=== PATIENT | male | born 1960 | race African-American/Black ===

== ENCOUNTER 2019-12-23 20:57 | Emergency (ER) | payer OTHER ==
[~2019-12-23] VITALS: Ht 142.2 cm; Wt 54.4 kg
[2019-12-23] MEDS ORDERED: LIPITOR20 MG PO (21:05)
[2019-12-23] MEDS ORDERED: ASA81BEC PO (21:05)
[2019-12-23] MEDS ORDERED: LEVETIRACETAM500 M1 PO (21:05)
[2019-12-23] MEDS ORDERED: CARVEDILOL12.5 MG PO (21:06)
[2019-12-23] MEDS ORDERED: GABAPENTIN600 M1 PO (21:06)
[2019-12-23] MEDS ORDERED: LISINOPRIL2.5 MG PO (21:06)
[2019-12-23] MEDS ORDERED: BACLOFEN 10MG T10 MG PO (21:07)
[2019-12-23] MEDS ORDERED: NORVASC 2.5 MG2.5 M1 PO (21:07)
[2019-12-23] MEDS ORDERED: PROTONIX40 M1 PO (21:08)
[2019-12-23] MEDS ORDERED: CHOLECALCIFEROL1 GM PO (21:10)
[2019-12-23 23:12] VITALS: BP 137/64
== END 2019-12-24 00:01 | disposition home or self-care (01) ==
LOC: ER 20:57
DX: R56.9 Unspecified convulsions (principal); R14.0 Abdominal distension (gaseous); I10 Essential (primary) hypertension; K21.9 Gastro-esophageal reflux disease without esophagitis; E78.5 Hyperlipidemia, unspecified; Z89.512 Acquired absence of left leg below knee; Z89.511 Acquired absence of right leg below knee; Z79.899 Other long term (current) drug therapy; Z79.82 Long term (current) use of aspirin; Z93.3 Colostomy status

== ENCOUNTER 2020-01-23 06:25 | Emergency (ER) | payer OTHER ==
[~2020-01-23] VITALS: Ht 160 cm; Wt 59.9 kg
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
[~2020-01-23 06:25] MED LIST: ASA81BEC PO; BACLOFEN 10MG T10 MG PO; CARVEDILOL12.5 MG PO; CHOLECALCIFEROL1 GM PO; GABAPENTIN600 M1 PO; LEVETIRACETAM500 M1 PO; LIPITOR20 MG PO; LISINOPRIL2.5 MG PO; NORVASC 2.5 MG2.5 M1 PO; PROTONIX40 M1 PO
[2020-01-23 07:24] LABS: ABSOLUTE NEUTROPHILS 2.9 thou/uL (1.4-8.2); HEMATOCRIT 39.4 % (42.0-52.0); HEMOGLOBIN 13.4 gm/dL (14.0-18.0); LYMPHOCYTES 28.3 % (24.0-44.0); MCH 32.3 pg (26.0-34.0); MCV 94.8 fL (80.0-100.0); MONOCYTES 7.7 % (1.0-8.0); PLATELET COUNT 175 thou/uL (150-400); RBC 4.16 mil/uL (4.50-6.00); RDW 12.8 % (10.5-14.5); WBC 5.8 thou/uL (4.0-11.0)
[2020-01-23 07:26] LABS: URINE BILIRUBIN NEGATIVE (Negative); URINE BLOOD NEGATIVE (Negative); URINE CLARITY CLEAR; URINE COLOR YELLOW; URINE GLUCOSE-RANDOM* NEGATIVE (Negative); URINE KETONES NEGATIVE (Negative); URINE LEUKOCYTES-REFLEX 1+ (Negative); URINE NITRITE-REFLEX NEGATIVE (Negative); URINE PROTEIN (DIPSTICK) NEGATIVE (Negative); URINE SPECIFIC GRAVITY <= 1.005 (1.005-1.035); URINE UROBILINOGEN 0.2 E.U./dl (0.2-1.0)
[2020-01-23 07:37] LABS: CALCIUM 8.9 mg/dL (8.5-10.1); CREATININE 0.5 mg/dL (0.7-1.3); POTASSIUM 3.8 mmol/L (3.5-5.1)
[2020-01-23 07:43] LABS: ALBUMIN 3.8 g/dL (3.4-5.0); TOTAL BILIRUBIN 0.5 mg/dL (0.2-1.0); TOTAL PROTEIN 7.3 g/dL (6.4-8.2)
--- NOTE | 2020-01-23 07:45 | EKG ---
[facility] [place] [address] ELECTROCARDIOGRAM REPORT Name: MITZIBECKY Room #: REG [facility].#: [id number] Admission: 01/23/20 Attend Phys: Discharge: Date of : 60 Report #: [id number] THIS REPORT FOR: cc: Esa Be MD, David B. MD Santiago, Patrick MD [facility] ~ THIS REPORT FOR: //name// [facility] ED Test Date: 2020-01-23 Test Time: 07:01:42 Pat Name: BECKY CARTAGENA Department: Room: Gender: M [place]: SVITLANA : 1960 Requested By: Everett Fregoso Order Number: [id number] MD: Lul Lyon Measurements Intervals [place] Rate: 59 P: 83 CO: 183 QRS: 77 QRSD: 97 T: 57 QT: 443 QTc: 439 Interpretive Statements Sinus rhythm Minimal ST elevation, anterior leads Baseline wander in lead(s) II,V3 No previous ECG available for comparison Electronically Signed On 01-23-2020 7:45:17 CDT by Lul Lyon [email or web address] <ELECTRONICALLY SIGNED> By: Lul Lyon MD, FAC 01/23/20 0745 0 0 Lul Lyon MD, [facility] /EPI
[2020-01-23 08:05] LABS: CASTS None Seen /LPF (None Seen); CRYSTALS None Seen /LPF (None Seen); SQUAMOUS 0-3 Few /LPF (0-3)
[2020-01-23 08:06] LABS: URINE RBC None Seen /HPF (0-2); URINE WBC-REFLEX 6-15 Few /HPF (0-5)
[2020-01-23] MEDS ORDERED: KEFLEX500 M1 PO ×2 (10:47→11:21)
[2020-01-23 11:23] VITALS: BP 150/83
== END 2020-01-23 11:24 | disposition home or self-care (01) ==
LOC: ER 06:25
PROVIDERS: Emergency Medicine
DX: R56.9 Unspecified convulsions (principal); I10 Essential (primary) hypertension; K21.9 Gastro-esophageal reflux disease without esophagitis; E78.5 Hyperlipidemia, unspecified; Z79.82 Long term (current) use of aspirin; Z79.899 Other long term (current) drug therapy